=== PATIENT | female | born 1995 | race African-American/Black ===

== ENCOUNTER 2022-05-03 12:49 | Emergency (ER) | payer MEDICAID ==
[~2022-05-03] VITALS: Ht 185.4 cm; Wt 81.0 kg
[~2022-05-03 12:49] MED LIST: PREN-88
[2022-05-03 13:12] VITALS: BP 139/67
[2022-05-03] MEDS ORDERED: ONDANSETRON HCL 4MG/2ML INJ IV ONE (14:00)
[2022-05-03 16:13] LABS: BASOPHILS % 0.7 % (0.0-2.0); EOSINOPHILS % 0.6 % (0.0-5.0); HEMATOCRIT. 36.9 % (36.0-48.0); HEMOGLOBIN. 12.2 g/dL (12.0-16.0); LYMPHOCYTES % 22.7 % (20.0-50.0); MEAN CORPUSCULAR HEMOGLOBIN 28.6 pg (28.0-32.0); MEAN CORPUSCULAR VOLUME 86.5 fL (81.0-99.0); MEAN PLATELET VOLUME 8.7 fl (7.4-10.4); MONOCYTES % 11.6 % (2.0-8.0); NEUTROPHILS % 64.4 % (40.0-76.0); PLATELET 228 x1000/uL (130-400); RED BLOOD CELL COUNT 4.26 mill/uL (4.2-5.4); RED CELL DISTRIBUTION WIDTH 13.9 % (11.6-14.6)
[2022-05-03 16:19] LABS: CHLORIDE 108 mEq/L (98-107)
[2022-05-03 16:35] LABS: B-HCG QUANTITATIVE < 1 mIU/mL (<3); BETA HYDROXYBUTYRATE 0.2 mMol/L (0.0-0.3)
[2022-05-03 16:39] LABS: CLARITY URINE CLOUDY (CLEAR); COLOR URINE YELLOW (YELLOW); KETONES URINE NEGATIVE (NEGATIVE); LEUKOCYTE ESTERASE URINE NEGATIVE (NEGATIVE); NITRITE URINE NEGATIVE (NEGATIVE); OCCULT BLOOD URINE TRACE (NEGATIVE); PROTEIN URINE TRACE (NEGATIVE); SPECIFIC GRAVITY URINE 1.019 (1.005-1.030); UROBILINOGEN URINE 0.2 E.U./dL (0.2-1.0)
== END 2022-05-03 17:33 | disposition home or self-care (01) ==
LOC: ER 12:49
DX: R10.84 Generalized abdominal pain (principal); I10 Essential (primary) hypertension; J45.909 Unspecified asthma, uncomplicated; Z88.6 Allergy status to analgesic agent; Z88.0 Allergy status to penicillin
CPT/HCPCS: 36415; 76830; 76856; 80053; 81003; 81025; 82010; 84702; 85025; 86850; 86900; 86901; 93005; 96374; 99285; J2405

== ENCOUNTER 2022-11-08 05:08 | Emergency (ER) | payer MEDICAID, OTHER ==
[~2022-11-08] VITALS: Ht 185.4 cm; Wt 82.0 kg
[2022-11-08 05:13] VITALS: O2SAT 98
[2022-11-08] MEDS ORDERED: ACETAMINOPHEN 325MG TABLET PO ONE (05:45)
[2022-11-08] MEDS ORDERED: LIDOCAINE HCL/PF 1% 10 MG/ML 5ML VIAL INFIL ONE (08:00)
[2022-11-08] MEDS ORDERED: TOPUD PO (08:36)
[2022-11-08] MEDS ORDERED: CLIN-116 PO (08:52)
[2022-11-08] MEDS ORDERED: TETANUS, DIPHTHERIA, PERTUSSIS VAC/PF 0.5ML (>10YR OLD) IM ONE (10:15)
[2022-11-08 10:25] VITALS: BP 112/98; PULSE 98; RESP 18; TEMP 98.7
== END 2022-11-08 10:25 | disposition home or self-care (01) ==
LOC: ER 05:08
DX: S01.511A Laceration without foreign body of lip, initial encounter (principal); Y04.0XXA Assault by unarmed brawl or fight, initial encounter; Y93.89 Activity, other specified; Y92.89 Other specified places as the place of occurrence of the external cause; Y99.8 Other external cause status
CPT/HCPCS: 99285; 70450; 81025; 73130; 90715; 12011; 90471; J3490

== ENCOUNTER 2023-04-13 16:59 | Emergency (ER) | payer MEDICAID, OTHER ==
[~2023-04-13] VITALS: Ht 162.6 cm; Wt 70.0 kg
[~2023-04-13 16:59] MED LIST changes: +CLIN-116 PO; +TOPUD PO
[2023-04-13 17:09] VITALS: BP 114/76; PULSE 82; RESP 18; TEMP 98.1; O2SAT 100
[2023-04-13] MEDS ORDERED: SODIUM CHLORIDE 0.9% 1,000 ML IV ONE (17:30)
== END 2023-04-13 17:50 | disposition left against medical advice (07) ==
LOC: ER 16:59
DX: R55 Syncope and collapse (principal); J45.909 Unspecified asthma, uncomplicated; I10 Essential (primary) hypertension; Z88.0 Allergy status to penicillin
CPT/HCPCS: 99283; J7030